=== PATIENT | male | born 1990 | race African-American/Black ===

== ENCOUNTER 2023-01-05 16:37 | Emergency (ER) | payer SELFPAY ==
[~2023-01-05] VITALS: Ht 182.9 cm; Wt 66.2 kg
[2023-01-05 17:11] VITALS: BP 141/81
[2023-01-05 19:14] LABS: Urine Bacteria NONE SEEN /hpf (None Seen); Urine Blood Negative /uL (Negative); Urine Specific Gravity 1.021 (1.001-1.035); Urine WBC 2 /hpf (0 - 3)
== END 2023-01-06 02:44 | disposition left against medical advice (07) ==
LOC: ER 16:37
DX: Z00.8 Encounter for other general examination (principal); Z53.21 Procedure and treatment not carried out due to patient leaving prior to being seen by health care provider
CPT/HCPCS: 81001